=== PATIENT | female | born 2000 | race Caucasian/White ===

== ENCOUNTER 2025-03-24 02:12 | Emergency (ER) | payer BC ==
[~2025-03-24] VITALS: Ht 165.1 cm; Wt 59.0 kg
[2025-03-24] MEDS ORDERED: KETOROLAC TROMETHAMINE 15 MG/ML VIAL ONE (02:39)
[2025-03-24] MEDS ORDERED: ONDANSETRON HCL/PF 4 MG/2 ML VIAL ONE (02:40)
[2025-03-24] MEDS ORDERED: PANTOPRAZOLE 40 MG VIAL ONE (02:40)
[2025-03-24] MEDS: IV NS 0.9% 1,000 ML BAG IV ONE (02:54)
[2025-03-24] MEDS: ONDANSETRON HCL/PF 4 MG/2 ML VIAL IVP ONE (02:54)
[2025-03-24] MEDS: PANTOPRAZOLE 40 MG VIAL IV ONE (02:54)
[2025-03-24 02:56] LABS: PLATELET COUNT (AUTO) 231 K/uL (150-450); RED BLOOD CELL COUNT(AUTO) 4.15 MIL/uL (4.0-5.2); RED CELL DISTRIBUTION WIDTH 13.4 % (11.5-15.0); WHITE BLOOD COUNT (AUTO) 8.2 K/uL (4.3-11.0)
[2025-03-24] MEDS: KETOROLAC TROMETHAMINE 15 MG/ML VIAL IV ONE (03:00)
[2025-03-24 03:02] LABS: APPEARANCE,URINE CLEAR (CLEAR); BLOOD, URINE NEGATIVE Ery/uL (NEGATIVE); LEUKOCYTE ESTERASE ,URINE NEGATIVE (NEGATIVE); NITRITE, URINE NEGATIVE (NEGATIVE); UGLUCOSE NEGATIVE (NEGATIVE)
[2025-03-24] MEDS ORDERED: IV NS 0.9% 250 ML IV ONE (03:09)
[2025-03-24] MEDS ORDERED: CT SWABBABLE VALVE TRANS SET 1 EA INFUS.SET MC ONE (03:09)
[2025-03-24] MEDS ORDERED: IOHEXOL-300 100 ML VIAL IV ONE (03:09)
[2025-03-24 03:10] LABS: CALCIUM, SERUM 8.5 mg/dL (8.5-10.1); CREATININE 0.8 mg/dL (0.6-1.3); SODIUM SERUM 142.0 mmol/L (136-145); UREA NITROGEN, BLOOD 10.0 mg/dL (7-18)
[2025-03-24 03:16] LABS: ASPARTATE AMINOTRANSFERASE 14.0 U/L (15-37); TOTAL PROTEIN, SERUM 6.7 g/dL (6.4-8.2)
[2025-03-24 05:00] VITALS: BP 124/70; TEMP 98.5; O2SAT 99
[2025-03-24] MEDS ORDERED: PANT40TA2 PO (05:29)
[2025-03-24] MEDS ORDERED: ONDA4TAB5 PO (05:34)
== END 2025-03-24 05:37 | disposition home or self-care (01) ==
LOC: ER 02:17
DX: R10.13 Epigastric pain (principal); R11.2 Nausea with vomiting, unspecified; F17.200 Nicotine dependence, unspecified, uncomplicated; F41.9 Anxiety disorder, unspecified; R10.20 Pelvic and perineal pain unspecified side
CPT/HCPCS: 99285; 74177; 96374; 96375; 96361; 85025; 80048; 83690; 80076; 81003; 36415; 84702; J1885; J2405; J7050; J2470; Q9967